=== PATIENT | male | born 1955 | race Asian ===

== ENCOUNTER 2017-02-10 10:11 | Emergency (ER) | payer OTHER ==
[2017-02-10] MEDS ORDERED: Fluorescein Sodium 1 mg Ophth Strip ONE (10:25)
[2017-02-10] MEDS ORDERED: Fluorescein Sodium 1 mg Ophth Strip RIGHT EYE ONE (10:35)
--- NOTE | 2017-02-10 10:45 | ED Physician Chart ---
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 ice fell off and hit him in his rt eye. vision is ok. unsure of last d tet. no WILLIS. he notes red mamie at underside of eye and pain. he is txd for dm and htn and does take his meds. pt took 3 motrin's at 4am (cautioned use tylenol in future) Allergies:: Allergies Allergy/AdvReac Type Severity Reaction Status Date / Time No Known Allergies Allergy Verified 02/10/17 10:25 Vitals:: Vital Signs - 8 hr 02/10/17 10:27 Temp 98.0 F HR 69 RR 17 BP 165/94 O2 Sat % 97 Historian:: Patient ED Review of Systems - Review of Systems General/Constitutional: No fever, No chills, No weight loss, No weakness, No diaphoresis, No edema, No loss of appetite Skin: No skin lesions, No rash, No bruising Head: No headache, No light-headedness Eyes: No loss of vision, Pain, No pain, No diplopia ENT: No earache, No nasal drainage, No sore throat, No tinnitus Neck: No neck pain, No swelling, No thyromegaly, No stiffness, No mass noted Cardio Vascular: No chest pain, No palpitations, No PND, No orthopnea, No edema Pulmonary: No SOB, No cough, No sputum, No wheezing GI: No nausea, No vomiting, No diarrhea, No pain, No melena, No hematochezia, No constipation, No hematemesis G/U: No dysuria, No frequency, No hematuria Musculoskeletal: No bone or joint pain, No back pain, No muscle pain Endocrine: No polyuria, No polydipsia Psychiatric: No prior psych history, No depression, No anxiety, No suicidal ideation Hematopoietic: No bruising, No lymphadenopathy Allergic/Immuno: No urticaria, No angioedema Neurological: No syncope, No focal symptoms, No weakness, No paresthesia, No headache, No seizure, No dizziness, No confusion, No vertigo ED Past Medical History - Past Medical History Past Medical History: HTN, DM Social History: Employed Medication: Reviewed Family Medical History - Family Member Mother History Unknown: Yes ED Physical Exam - Physical Examination General/Constitutional: Awake, Well-developed, well-nourished, Alert, No distress, GCS 15, Non-toxic appearing, Ambulatory Head: Atraumatic Eyes: PERRL, EOMI Other Eyes comments:: rt eye is injected w erythema of sclera inferior portion. obvious abrasion injury to medial sclera. subconjunctiival hemorrhage. eomi x 8 ok. eye grounds-posterior well seen and no retrobulbar hemorrhage. vessles well defined and wnl. fluoroscene dye used to examine external eye w barrett lamp and no corneal injury. scleral abrasion again noted w no streaming. pupil round not pointing. vis acuity was 25/20 and equal in b eyes per Rn Minohan Skin: Nl inspection, No rash, No skin lesions, No ecchymosis, Well hydrated, No lymphadenopathy ENMT: External ears, nose nl, Nasal exam nl, Lips, teeth, gums nl Neck: Nontender, Full ROM w/o pain, No JVD, No nuchal rigidity, No bruit, No mass, No stridor Respiratory: Nl effort/Exclusion, Clear to Auscultation, No Wheeze/Rhonchi/Rales Cardio Vascular: RRR, No murmur, gallop, rubs, NL S1 S2 GI: No tenderness/rebounding/guarding, No organomegaly, No hernia, Normal BS's, Nondistended, No mass/bruits, No McBurney tenderness : No CVA tenderness Extremities: No tenderness or effusion, Full ROM, normal strength in all extremities, No edema, Normal digits & nails Neuro/Psych: Alert/oriented, DTR's symmetric, Normal sensory exam, Normal motor strength, Judgement/insight normal, Mood normal, Normal gait, No focal deficits Misc: normal gait, Normal back, No paraspinal tenderness ED Septic Shock - . Is Septic Shock (SBP<90, OR Lactate>4 mmol\L) present?: No - <6hrs of presentation: Vital Signs: Vital Signs - 8 hr 02/10/17 10:27 Temp 98.0 F HR 69 RR 17 BP 165/94 O2 Sat % 97 ED Reassessment (Disposition) - Reassessment Reassessment:: rx- t#3 for pain, gentak opth ointment. advise no more motrin. advise see eye dr for rechk in 1-2 days. return if vision worse...or eye worse. Reassessment Condition:: Improved - Diagnosis Diagnosis:: subconjunctiival hemorrhage and scleral abrasion to rt eye - Aftercare/Follow up Instructions Aftercare/Follow-Up Instructions:: Counseled pt regarding lab results/diagnosis & need follow up - Patient Disposition Discharge/Transfer:: Home Condition at Disposition:: Improved
== END 2017-02-10 11:01 | disposition home or self-care (01) ==
LOC: ER 10:11
DX: H11.31 Conjunctival hemorrhage, right eye (principal); S05.01XA Injury of conjunctiva and corneal abrasion without foreign body, right eye, initial encounter; X58.XXXA Exposure to other specified factors, initial encounter; Y93.89 Activity, other specified; Y92.89 Other specified places as the place of occurrence of the external cause; I10 Essential (primary) hypertension; E11.9 Type 2 diabetes mellitus without complications
CPT/HCPCS: Z7502